=== PATIENT | male | born 1985 | race Two or more races ===

== ENCOUNTER 2018-05-22 21:06 | Observation (INO) | payer BC, MEDICAID ==
[~2018-05-22] VITALS: Ht 175.3 cm; Wt 122.5 kg
[2018-05-22] MEDS ORDERED: cloNIDine HCL 0.1 MG TAB ONE (21:24)
[2018-05-22] MEDS: cloNIDine HCL 0.1 MG TAB PO ONE ×2 (21:30→21:32)
[2018-05-22 21:44] LABS: Basophils # (auto) 0.1 uL; Basophils % (auto) 1.1 % (0.0-2.0); Eosinophils # (auto) 0.3 uL; Eosinophils % (auto) 2.9 % (0.0-7.0); Hematocrit 42.3 % (41.0-53.0); Lymphocytes # (auto) 3.4 uL; Lymphocytes % (auto) 37.7 % (10.0-50.0); Mean Corpuscular Hemoglobin 30.5 pg (28.0-32.0); Mean Corpuscular Hgb Conc. 35.4 g/dL (32.0-36.0); Monocytes # (auto) 0.5 uL; Monocytes % (auto) 5.8 % (0.0-12.0); Neutrophils # (auto) 4.8 uL; Neutrophils % (auto) 52.5 % (37.0-80.0); Nucleated Red Blood Cells % 0.1 %; Platelet Count (auto) 302 10^3/uL (140-450); Red Blood Cells 4.93 10^6/uL (4.5-5.90); Red Cell Distribution Width 13.1 % (11.8-14.3); White Blood Cell 9.1 10^3/uL (4.4-10.8)
[2018-05-22 21:56] LABS: INR 0.94 (0.9-1.15); Partial Thromboplastin Time 31.5 sec (23.78-33.04); Prothrombin Time 10.1 sec (9.27-12.13)
[2018-05-22 22:02] LABS: Albumin 4.4 g/dL (3.4-5.0); BUN/Creatinine Ratio 14.8; Bilirubin, Total 0.6 mg/dL (0.2-1.0); Potassium 3.1 mmol/L (3.5-5.1); Total Protein 8.9 g/dL (6.4-8.2)
[2018-05-23 03:15] VITALS: BP 163/84
== END 2018-05-23 04:13 | disposition home or self-care (01) | DRG 115 ==
LOC: EDBD 21:06 → ER 21:06 → OVERFLOW 21:07 → ER 05-23 04:13
PROVIDERS: ADMIT Emergency Medicine; ATTEND Emergency Medicine
DX: R04.0 Epistaxis (principal); I10 Essential (primary) hypertension
CPT/HCPCS: 36415; 80053; 80320; 85025; 85610; 85730; 99285; G0378

== ENCOUNTER 2019-04-09 20:18 | Emergency (ER) | payer OTHER, MEDICAID ==
[~2019-04-09] VITALS: Ht 175.3 cm; Wt 117.9 kg
[2019-04-09] MEDS ORDERED: SODIUM CHLORIDE 0.9% 1,000 ML IVB ONE (20:54)
[2019-04-09 22:15] LABS: Basophils # (auto) 0.1 uL; Basophils % (auto) 0.6 % (0.0-2.0); Eosinophils # (auto) 0.1 uL; Eosinophils % (auto) 0.7 % (0.0-7.0); Hemoglobin 14.5 g/dL (13.5-17.5); Lymphocytes # (auto) 1.2 uL; Lymphocytes % (auto) 10.6 % (10.0-50.0); Mean Corpuscular Hemoglobin 30.2 pg (28.0-32.0); Mean Corpuscular Hgb Conc. 35.4 g/dL (32.0-36.0); Mean Corpuscular Volume 85.5 fL (80.0-100.0); Monocytes # (auto) 0.6 uL; Monocytes % (auto) 5.4 % (0.0-12.0); Neutrophils # (auto) 9.1 uL; Neutrophils % (auto) 82.7 % (37.0-80.0); Nucleated Red Blood Cells % 0.1 %; Platelet Count (auto) 255 10^3/uL (140-450); Red Blood Cells 4.79 10^6/uL (4.5-5.90); Red Cell Distribution Width 13.6 % (11.8-14.3)
[2019-04-09] MEDS ORDERED: ONDANSETRON HCL 4 MG/2 ML VIAL IV ONE (22:15)
[2019-04-09] MEDS ORDERED: KETOROLAC TROMETH 30 MG/ML 1ML VIAL IV ONE (22:15)
[2019-04-09 22:35] LABS: INR 0.95 (0.9-1.15); Partial Thromboplastin Time 27.5 sec (23.64-32.05)
[2019-04-09 22:36] LABS: Albumin 4.1 g/dL (3.4-5.0); Magnesium 2.4 mg/dL (1.6-2.6); Potassium 3.2 mmol/L (3.5-5.1)
[2019-04-09 22:40] LABS: BUN/Creatinine Ratio 10.5; Bilirubin, Total 0.6 mg/dL (0.2-1.0); Total Protein 8.7 g/dL (6.4-8.2)
[2019-04-10 04:25] LABS: Albumin 4.2 g/dL (3.4-5.0); Bilirubin, Direct 0.2 mg/dL (0-0.2)
[2019-04-10 04:28] LABS: Bilirubin, Total 0.6 mg/dL (0.2-1.0); Total Protein 8.9 g/dL (6.4-8.2)
[2019-04-10 06:47] VITALS: BP 154/94
== END 2019-04-10 06:49 | disposition home or self-care (01) ==
LOC: EDBD 20:18 → ER 20:22
DX: K76.0 Fatty (change of) liver, not elsewhere classified (principal); K75.9 Inflammatory liver disease, unspecified
CPT/HCPCS: 36415; 71045; 74176; 80053; 80076; 82140; 83735; 85025; 85610; 85730; 94761; 96374; 96375; 99284; J1885; J2405; J7030

== ENCOUNTER 2019-12-23 13:14 | Emergency (ER) | payer OTHER, MEDICAID ==
[~2019-12-23] VITALS: Ht 182.9 cm; Wt 136.1 kg
[2019-12-23] MEDS ORDERED: methylPREDNISolone SOD SUCC 125 MG/2 ML VL IV ONE (13:30)
[2019-12-23] MEDS ORDERED: IPRATROPIUM BROM 0.5 MG/2.5ML INH SOL HHN ONE (13:30)
[2019-12-23] MEDS ORDERED: ALBUTEROL SULF 2.5 MG/0.5ML(0.5%) NEB SOLN HHN ONE (13:30)
[2019-12-23 13:55] LABS: Basophils # (auto) 0.1 uL; Basophils % (auto) 0.7 % (0.0-2.0); Eosinophils # (auto) 0.1 uL; Eosinophils % (auto) 0.9 % (0.0-7.0); Hematocrit 40.8 % (41.0-53.0); Hemoglobin 14.4 g/dL (13.5-17.5); Lymphocytes # (auto) 1.4 uL; Lymphocytes % (auto) 13.9 % (10.0-50.0); Mean Corpuscular Hemoglobin 30.3 pg (28.0-32.0); Mean Corpuscular Hgb Conc. 35.3 g/dL (32.0-36.0); Mean Corpuscular Volume 85.9 fL (80.0-100.0); Monocytes # (auto) 0.6 uL; Monocytes % (auto) 5.5 % (0.0-12.0); Neutrophils # (auto) 8.2 uL; Platelet Count (auto) 250 10^3/uL (140-450); Red Blood Cells 4.75 10^6/uL (4.5-5.90); Red Cell Distribution Width 12.7 % (11.8-14.3); White Blood Cell 10.3 10^3/uL (4.4-10.8)
[2019-12-23 14:16] LABS: Alanine Aminotransferase 103 U/L (16-61); Albumin 3.8 g/dL (3.4-5.0); Anion Gap 6 (5-15); Aspartate Aminotransferase 75 U/L (15-37); Blood Urea Nitrogen 8 mg/dL (7-18); Calcium 8.5 mg/dL (8.5-10.1); Carbon Dioxide 25 mmol/L (21-32); Chloride 105 mmol/L (98-107); GFR African American 159 mL/min; GFR Non-African American 132 mL/min; Glucose 141 mg/dL (74-106); Potassium 3.2 mmol/L (3.5-5.1); Sodium 136 mmol/L (136-145)
[2019-12-23 14:22] LABS: Alkaline Phosphatase 179 U/L (45-117); Bilirubin, Total 0.7 mg/dL (0.2-1.0)
[2019-12-23] MEDS ORDERED: IOHEXOL 350 MG/ML 100ML IJ ONE (17:04)
[2019-12-23 17:48] VITALS: BP 143/79
[2019-12-23 18:54] LABS: Urine WBC None Seen /hpf (0 - 3)
[2019-12-23 19:04] LABS: Urine Bacteria NONE SEEN /hpf (None Seen); Urine Blood Negative /uL (Negative)
[2019-12-23 19:07] LABS: Urine Specific Gravity 1.094 (1.001-1.035)
== END 2019-12-23 19:30 | disposition home or self-care (01) ==
LOC: EDBD 13:14 → ER 13:14
DX: J20.9 Acute bronchitis, unspecified (principal); Z87.442 Personal history of urinary calculi
CPT/HCPCS: 36415; 71045; 71275; 80053; 81001; 83605; 83880; 84484; 85025; 85379; 87040; 87077; 87186; 93005; 94640; 96374; 99285; J2930; J7644; Q9967

== ENCOUNTER 2020-09-06 02:31 | Emergency (ER) | payer OTHER, MEDICAID ==
[~2020-09-06] VITALS: Ht 175.3 cm; Wt 122.5 kg
[2020-09-06] MEDS ORDERED: methylPREDNISolone SOD SUCC 125 MG/2 ML VL IM ONE (03:45)
[2020-09-06] MEDS ORDERED: KETOROLAC TROMETH 60MG/2ML VIAL IM ONE (03:45)
[2020-09-06] MEDS ORDERED: cloNIDine HCL 0.1 MG TAB PO ONE (04:30)
[2020-09-06 04:58] VITALS: BP 155/108
== END 2020-09-06 05:08 | disposition home or self-care (01) ==
LOC: ER 02:33
DX: S83.91XA Sprain of unspecified site of right knee, initial encounter (principal); R03.0 Elevated blood-pressure reading, without diagnosis of hypertension; X58.XXXA Exposure to other specified factors, initial encounter; Y93.89 Activity, other specified; Y99.8 Other external cause status; Y92.89 Other specified places as the place of occurrence of the external cause
CPT/HCPCS: 29505; 96372; 99284; J1885; J2930